=== PATIENT | female | born 1965 | race African-American/Black ===

== ENCOUNTER 2017-02-27 15:45 | Emergency (ER) | payer OTHER ==
[2017-02-27] MEDS ORDERED: NORMAL SALINE 1000 ML 1,000 ML IV ONE ×2 (16:51→18:59)
[2017-02-27] MEDS ORDERED: ONDANSETRON HCL INJ/PF 4 MG/2 ML SDV IV ONE (16:51)
--- NOTE | 2017-02-27 16:53 | ER Document Report ---
ED Medical Screen (RME) - General Chief Complaint: Nausea/Vomiting Stated Complaint: FLU LIKE SYMPTOMS Notes: 51-year-old female patient on chronic pain management with very large doses of oxycodone and OxyContin, reports five-day history of nausea vomiting, body aches and weakness. There is been no diarrhea. She has not had any medication at home to treat the nausea. There has been no fever, but her temperature was 99.3 at triage. I have greeted and performed a rapid initial assessment of this patient. A comprehensive ED assessment and evaluation of the patient, analysis of test results and completion of the medical decision making process will be conducted by additional ED providers. TRAVEL OUTSIDE OF THE [place] IN LAST 30 DAYS: No - Related Data Allergies/Adverse Reactions: amitriptyline [Amitriptyline] Allergy (Verified 02/27/17 15:51) celecoxib [From Celebrex] Allergy (Verified 02/27/17 15:51) cephalexin monohydrate [From Keflex] Allergy (Verified 02/27/17 15:51) Sulfa (Sulfonamide Antibiotics) Allergy (Verified 02/27/17 15:51) topiramate [From Topamax] Allergy (Verified 02/27/17 15:51) tramadol HCl [From Ultracet] Allergy (Verified 02/27/17 15:51) zolmitriptan [From Zomig] Allergy (Verified 02/27/17 15:51) acetaminophen [From MIDRIN] Adverse Reaction (Verified 02/27/17 15:51) caffeine [From Cafergot] Adverse Reaction (Verified 02/27/17 15:51) dichloralphenazone [From MIDRIN] Adverse Reaction (Verified 02/27/17 15:51) diclofenac sodium [From Arthrotec 75] Adverse Reaction (Verified 02/27/17 15:51) ergotamine tartrate [From Cafergot] Adverse Reaction (Verified 02/27/17 15:51) ibuprofen Adverse Reaction (Verified 02/27/17 15:51) isometheptene mucate [From MIDRIN] Adverse Reaction (Verified 02/27/17 15:51) misoprostol [From Arthrotec 75] Adverse Reaction (Verified 02/27/17 15:51) morphine [Morphine] Adverse Reaction (Verified 02/27/17 15:51) sertraline HCl [From Zoloft] Adverse Reaction (Verified 04/05/17 15:51) sumatriptan [From Imitrex] Adverse Reaction (Verified 02/27/17 15:51) sumatriptan succinate [From Imitrex] Adverse Reaction (Verified 02/27/17 15:51) Home Medications: Current Home Medications Carisoprodol [Carisoprodol] 350 mg PO TID 02/27/17 [History] Lisinopril [Lisinopril] 40 mg PO DAILY 02/27/17 [History] Naproxen [Naproxen] 500 mg PO BID 02/27/17 [History] Oxycodone HCl [Oxycodone HCl] 30 mg PO Q4H PRN 02/27/17 [History] Oxycodone HCl [Oxycontin] 60 mg PO Q12H PRN 02/27/17 [History] Propranolol HCl [Propranolol HCl ER] 120 mg PO DAILY 02/27/17 [History] Past Medical History - Past Medical History Cardiac Medical History: Reports: Hx Hypertension Neurological Medical History: Reports: Hx Migraine Renal/ Medical History: Denies: Hx Peritoneal Dialysis Past Surgical History: Reports: Hx Appendectomy - Immunizations Hx Diphtheria, Pertussis, Tetanus Vaccination: No Physical Exam - Vital signs Vitals: Temp Pulse Resp BP Pulse Ox 99.3 F 55 L 20 148/88 H 99 02/27/17 15:52 02/27/17 15:52 02/27/17 15:52 02/27/17 15:52 02/27/17 15:52 Course - Vital Signs Vital signs: Temp Pulse Resp BP Pulse Ox 99.3 F 55 L 20 148/88 H 99 02/27/17 15:52 02/27/17 15:52 02/27/17 15:52 02/27/17 15:52 02/27/17 15:52
[2017-02-27 18:06] LABS: ABSOLUTE MONOCYTES (AUTO) 0.3 10^3/uL (0.1-1.4); ABSOLUTE NEUT (AUTO) 2.1 10^3/uL (1.7-8.2); BASOPHILS % (AUTO) 0.8 % (0-2); EOSINOPHILS % (AUTO) 0.3 % (0-6); HEMATOCRIT 44.3 % (36.0-47.0); HGB HCT DIFFERENCE 0.7; LYMPHOCYTES % (AUTO) 45.1 % (13-45); MEAN CORPUSCULAR HEMOGLOBIN 30.6 pg (27.0-33.4); MEAN CORPUSCULAR HGB CONC 33.9 g/dL (32.0-36.0); MEAN CORPUSCULAR VOLUME 90 fl (80-97); MONOCYTES % (AUTO) 6.3 % (3-13); RED CELL DISTRIBUTION WIDTH 12.7 % (11.5-14.0); SEGMENTED NEUTROPHILS % (AUTO) 47.5 % (42-78); WHITE BLOOD COUNT 4.4 10^3/uL (4.0-10.5)
[2017-02-27 18:09] LABS: ALANINE AMINOTRANSFERASE 18 U/L (9-52); ALBUMIN 4.3 g/dL (3.5-5.0); ALKALINE PHOSPHATASE 122 U/L (38-126); ANION GAP 14 (5-19); ASPARTATE AMINO TRANSFERASE 17 U/L (14-36); BILIRUBIN,DIRECT 0.4 mg/dL (0.0-0.4); BILIRUBIN,TOTAL 1.1 mg/dL (0.2-1.3); BLOOD UREA NITROGEN 16 mg/dL (7-20); CALCIUM 9.6 mg/dL (8.4-10.2); CARBON DIOXIDE 25 mmol/L (22-30); CHLORIDE 96 mmol/L (98-107); CREATININE RESULT 0.63 mg/dL (0.52-1.25); GLUCOSE 90 mg/dL (75-110); LIPASE 140.5 U/L (23-300); POTASSIUM 3.5 mmol/L (3.6-5.0); SODIUM 134.9 mmol/L (137-145); TOTAL PROTEIN 6.9 g/dL (6.3-8.2)
--- NOTE | 2017-02-27 18:54 | ER Document Report ---
ED GI/ - General Chief Complaint: Nausea/Vomiting Stated Complaint: FLU LIKE SYMPTOMS Mode of Arrival: Ambulatory Information source: Patient TRAVEL OUTSIDE OF THE [place] IN LAST 30 DAYS: No - HPI Notes: 02/27/17 18:51 Patient arrives with complaints of nausea and vomiting with body aches for the last several days. Complains of some occasional abdominal cramping but no significant abdominal pain. She denies any chest pain or shortness breath. No fever. She has a history of chronic pain and is on OxyContin and oxycodone for this. She is concerned that she is dehydrated from her vomiting. She denies any diarrhea. She denies any blood in her vomit or stools. He has any problems taking or weakness. No blurred or loss vision. No rash. Nothing seems to make her symptoms better or worse. She is no other complaints at this time. - Related Data Allergies/Adverse Reactions: amitriptyline [Amitriptyline] Allergy (Verified 02/27/17 15:51) celecoxib [From Celebrex] Allergy (Verified 02/27/17 15:51) cephalexin monohydrate [From Keflex] Allergy (Verified 02/27/17 15:51) Sulfa (Sulfonamide Antibiotics) Allergy (Verified 02/27/17 15:51) topiramate [From Topamax] Allergy (Verified 02/27/17 15:51) tramadol HCl [From Ultracet] Allergy (Verified 02/27/17 15:51) zolmitriptan [From Zomig] Allergy (Verified 02/27/17 15:51) acetaminophen [From MIDRIN] Adverse Reaction (Verified 02/27/17 15:51) caffeine [From Cafergot] Adverse Reaction (Verified 02/27/17 15:51) dichloralphenazone [From MIDRIN] Adverse Reaction (Verified 02/27/17 15:51) diclofenac sodium [From Arthrotec 75] Adverse Reaction (Verified 02/27/17 15:51) ergotamine tartrate [From Cafergot] Adverse Reaction (Verified 02/27/17 15:51) ibuprofen Adverse Reaction (Verified 02/27/17 15:51) isometheptene mucate [From MIDRIN] Adverse Reaction (Verified 02/27/17 15:51) misoprostol [From Arthrotec 75] Adverse Reaction (Verified 02/27/17 15:51) morphine [Morphine] Adverse Reaction (Verified 02/27/17 15:51) sertraline HCl [From Zoloft] Adverse Reaction (Verified 02/27/17 15:51) sumatriptan [From Imitrex] Adverse Reaction (Verified 02/27/17 15:51) sumatriptan succinate [From Imitrex] Adverse Reaction (Verified 02/27/17 15:51) Home Medications: Current Home Medications Carisoprodol [Carisoprodol] 350 mg PO TID 02/27/17 [History] Lisinopril [Lisinopril] 40 mg PO DAILY 02/27/17 [History] Naproxen [Naproxen] 500 mg PO BID 02/27/17 [History] Oxycodone HCl [Oxycodone HCl] 30 mg PO Q4H PRN 02/27/17 [History] Oxycodone HCl [Oxycontin] 60 mg PO Q12H PRN 02/27/17 [History] Propranolol HCl [Propranolol HCl ER] 120 mg PO DAILY 02/27/17 [History] Past Medical History - Social History Smoking Status: Unknown if Ever Smoked Chew tobacco use (# tins/day): No Frequency of alcohol use: None Drug Abuse: None Family History: Reviewed & Not Pertinent Patient has suicidal ideation: No Patient has homicidal ideation: No - Past Medical History Cardiac Medical History: Reports: Hx Hypertension Neurological Medical History: Reports: Hx Migraine Renal/ Medical History: Denies: Hx Peritoneal Dialysis Past Surgical History: Reports: Hx Appendectomy, Hx Orthopedic Surgery - right shoulder - Immunizations Hx Diphtheria, Pertussis, Tetanus Vaccination: No Review of Systems - Review of Systems -: Yes All other systems reviewed and negative Physical Exam - Vital signs Vitals: Temp Pulse Resp BP Pulse Ox 99.3 F 55 L 20 148/88 H 99 02/27/17 15:52 02/27/17 15:52 02/27/17 15:52 02/27/17 15:52 02/27/17 15:52 - General General appearance: Appears well, Alert In distress: None - HEENT Head: Normocephalic, Atraumatic Eyes: Normal Pupils: PERRL Ears: Normal Mouth/Lips: Normal Mucous membranes: Normal Pharynx: Normal - Respiratory Respiratory status: No respiratory distress Breath sounds: Normal - Cardiovascular Rhythm: Regular Heart sounds: Normal auscultation Murmur: No - Abdominal Inspection: Normal Distension: No distension Bowel sounds: Normal Tenderness: Nontender Organomegaly: No organomegaly - Back Back: Normal, Nontender. No: CVA tenderness - Extremities General upper extremity: Normal inspection, Nontender, Normal color, Normal ROM , Normal temperature General lower extremity: Normal inspection, Nontender, Normal color, Normal ROM , Normal temperature, Normal weight bearing. No: Prince's sign - Neurological Neuro grossly intact: Yes Cognition: Normal Orientation: AAOx4 Nirav Coma Scale Eye Opening: Spontaneous [place] Coma Scale Verbal: Oriented [place] Coma Scale Motor: Obeys Commands Nirav Coma Scale Total: 15 Speech: Normal Motor strength normal: LUE, RUE, LLE, RLE Sensory: Normal - Psychological Associated symptoms: Normal affect, Normal mood - Skin Skin Temperature: Warm Skin Moisture: Dry Skin Color: Normal Course - Re-evaluation Re-evalutation: 02/27/17 19:40 Patient's nontoxic-appearing with stable vitals. Patient has a benign abdominal exam. Her labs are all unremarkable. She has no obvious signs of dehydration with a normal creatinine and BUN. EKG troponin chest x-ray are all negative. This point we are awaiting a urine sample to rule out UTI as a source of her nausea vomiting. If her urinalysis is negative the patient will be discharged home with antiemetics. If it shows urinary tract infection she will be discharged home with antiemetics and antibiotics. The patient is noted to have elevated blood pressure during today's emergency department visit. The patient was informed of this finding. The patient was instructed that this may be related to pre-hypertension and requires further evaluation with a primary care provider. The patient has no hypertensive symptoms at this time. The patient's emergency department workup and current diagnosis were explained to the patient and or family. Follow-up instructions were provided. Medications if prescribed were discussed. Instructions for when to return to the emergency department including specific worrisome symptoms were discussed with the patient and/or family. - Vital Signs Vital signs: Temp Pulse Resp BP Pulse Ox 99.3 F 55 L 20 148/88 H 99 02/27/17 15:52 02/27/17 15:52 02/27/17 15:52 02/27/17 15:52 02/27/17 15:52 - Laboratory Result Diagrams: 02/27/17 17:31 02/27/17 17:31 Laboratory results interpreted by me: 02/27/17 02/27/17 17:31 17:31 Lymphocytes % 45.1 H Sodium 134.9 L Potassium 3.5 L Chloride 96 L - Diagnostic Test Radiology reviewed: Image reviewed, Reports reviewed - Chest x-ray negative - EKG Interpretation by Me EKG shows normal: Sinus rhythm, Intervals, QRS Complexes, ST-T Waves Rate: Bradycardia When compared to previous EKG there are: No significant change Discharge - Discharge Clinical Impression: Nausea & vomiting Qualifiers: Vomiting type: unspecified Vomiting Intractability: non-intractable Qualified Code(s): R11.2 - Nausea with vomiting, unspecified Disposition: HOME, SELF-CARE Instructions: Vomiting ([facility]) Additional Instructions: Take medications as prescribed. Drink plenty of fluids. Follow-up with your doctor if not better in 3 days, sooner for persistent vomiting, high fever, severe abdominal pain, passing out, or any further concerns. Your blood pressure was elevated during today's visit. Have this rechecked with your doctor. Prescriptions: Ondansetron HCl [Zofran 4 mg Tablet] 1 tab PO Q6H PRN #10 tablet PRN Reason: Forms: Elevated Blood Pressure
[2017-02-27 19:54] LABS: APPEARANCE,URINE CLEAR; BILIRUBIN,URINE NEGATIVE (NEGATIVE); GLUCOSE, URINE NEGATIVE (NEGATIVE); KETONES,URINE 20 mg/dL (NEGATIVE); LEUKOCYTE ESTERASE,URINE NEGATIVE (NEGATIVE); NITRITE,URINE NEGATIVE (NEGATIVE); PROTEIN,URINE NEGATIVE (NEGATIVE); URINE SPECIFIC GRAVITY 1.021
[2017-02-27 21:58] VITALS: BP 110/68
--- NOTE | 2017-02-27 22:08 | EKG REPORT ---
SEVERITY:- ABNORMAL ECG - SINUS BRADYCARDIA CONSIDER LEFT VENTRICULAR HYPERTROPHY : Confirmed by: Poonam Cruz MD 27-Feb-2017 22:06:45
== END 2017-02-27 21:58 | disposition home or self-care (01) ==
LOC: ER 15:45
DX: R11.2 Nausea with vomiting, unspecified (principal); M79.1 Myalgia; R53.1 Weakness; R19.7 Diarrhea, unspecified; I10 Essential (primary) hypertension; Z88.2 Allergy status to sulfonamides; Z88.6 Allergy status to analgesic agent
CPT/HCPCS: 93005; 99284; 96361; 96374; 36415; 87040; 83690; 85025; 80053; 81001; 84484; 71020; 93010; J2405; J7030

== ENCOUNTER 2017-06-28 15:13 | Emergency (ER) | payer OTHER ==
[2017-06-28] MEDS ORDERED: ACETAMINOPHEN 325 MG TABLET PO ONE (15:46)
--- NOTE | 2017-06-28 16:25 | ER Document Report ---
ED Fall - General Chief Complaint: Fall Stated Complaint: FALL/RIGHT LEG INJURY Time Seen by Provider: 06/28/17 15:33 Mode of Arrival: Wheelchair Information source: Patient Notes: 52 yo female presents to ed for pain to right hip, femur, knee, and lower leg, after falling about 2 weeks ago. Paitent states the pain is not getting better. TRAVEL OUTSIDE OF THE [place] IN LAST 30 DAYS: No - HPI Occurred: Other - 2 weeks Where: Home, Outdoors Context: Tripped, Fell from standing Associated symptoms: None Location of injury/pain: Hip, Knee, Thigh, Lower extremity Quality of pain: Achy, Sharp Severity: Moderate Pain Level: 4 - Related data Allergies/Adverse Reactions: amitriptyline [Amitriptyline] Allergy (Verified 06/28/17 15:22) celecoxib [From Celebrex] Allergy (Verified 06/28/17 15:22) cephalexin monohydrate [From Keflex] Allergy (Verified 06/28/17 15:22) Sulfa (Sulfonamide Antibiotics) Allergy (Verified 06/28/17 15:22) topiramate [From Topamax] Allergy (Verified 06/28/17 15:22) tramadol HCl [From Ultracet] Allergy (Verified 06/28/17 15:22) zolmitriptan [From Zomig] Allergy (Verified 06/28/17 15:22) acetaminophen [From MIDRIN] Adverse Reaction (Verified 06/28/17 15:22) caffeine [From Cafergot] Adverse Reaction (Verified 06/28/17 15:22) dichloralphenazone [From MIDRIN] Adverse Reaction (Verified 06/28/17 15:22) diclofenac sodium [From Arthrotec 75] Adverse Reaction (Verified 06/28/17 15:22) ergotamine tartrate [From Cafergot] Adverse Reaction (Verified 06/28/17 15:22) ibuprofen Adverse Reaction (Verified 06/28/17 15:22) isometheptene mucate [From MIDRIN] Adverse Reaction (Verified 06/28/17 15:22) misoprostol [From Arthrotec 75] Adverse Reaction (Verified 06/28/17 15:22) morphine [Morphine] Adverse Reaction (Verified 06/28/17 15:22) sertraline HCl [From Zoloft] Adverse Reaction (Verified 06/28/17 15:22) sumatriptan [From Imitrex] Adverse Reaction (Verified 06/28/17 15:22) sumatriptan succinate [From Imitrex] Adverse Reaction (Verified 06/28/17 15:22) Past Medical History - General Information source: Patient - Social History Smoking Status: Current Every Day Smoker Cigarette use (# per day): Yes Smoking Education Provided: Yes Frequency of alcohol use: None Drug Abuse: None Lives with: Family Family History: Reviewed & Not Pertinent Patient has suicidal ideation: No Patient has homicidal ideation: No - Past Medical History Cardiac Medical History: Reports: Hx Hypertension Pulmonary Medical History: Reports: None EENT Medical History: Reports: None Neurological Medical History: Reports: Hx Migraine Endocrine Medical History: Reports: None Renal/ Medical History: Reports: None Malignancy Medical History: Reports: None GI Medical History: Reports: Hx Colonoscopy Musculoskeltal Medical History: Reports Hx Arthritis, Reports Hx Musculoskeletal Deformity - ddd, Reports Hx Musculoskeletal Trauma Skin Medical History: Reports None Psychiatric Medical History: Reports: Hx Anxiety Traumatic Medical History: Reports: None Infectious Medical History: Reports: None Past Surgical History: Reports: Hx Appendectomy, Hx Orthopedic Surgery - right shoulder - Immunizations Hx Diphtheria, Pertussis, Tetanus Vaccination: No Review of Systems - Review of Systems Constitutional: No symptoms reported EENT: No symptoms reported Cardiovascular: No symptoms reported Respiratory: No symptoms reported Gastrointestinal: No symptoms reported Genitourinary: No symptoms reported Female Genitourinary: No symptoms reported Musculoskeletal: Other - right leg form hip to ankle painful and bruised since fall 2 weeks ago. Skin: No symptoms reported Hematologic/Lymphatic: No symptoms reported Neurological/Psychological: No symptoms reported -: Yes All other systems reviewed and negative Physical Exam - Vital signs Vitals: Temp Pulse Resp BP Pulse Ox 98.5 F 67 18 114/80 97 06/28/17 15:19 06/28/17 15:19 06/28/17 15:19 06/28/17 15:19 06/28/17 15:19 Interpretation: Normal - General General appearance: Appears well, Alert - HEENT Head: Normocephalic, Atraumatic Eyes: Normal Pupils: PERRL - Respiratory Respiratory status: No respiratory distress Chest status: Nontender Breath sounds: Normal Chest palpation: Normal - Cardiovascular Rhythm: Regular Heart sounds: Normal auscultation Murmur: No - Abdominal Inspection: Normal Distension: No distension Bowel sounds: Normal Tenderness: Nontender Organomegaly: No organomegaly - Back Back: Normal, Nontender - Extremities General upper extremity: Normal inspection, Nontender, Normal color, Normal ROM , Normal temperature General lower extremity: Normal temperature Hip: Tender, Ecchymosis Thigh: Tender, Ecchymosis Knee: Tender, Ecchymosis Calf: Tender, Ecchymosis Ankle: Tender, Ecchymosis Foot: Normal, Nontender - Neurological Neuro grossly intact: Yes Cognition: Normal Orientation: AAOx4 [place] Coma Scale Eye Opening: Spontaneous Nirav Coma Scale Verbal: Oriented [place] Coma Scale Motor: Obeys Commands [place] Coma Scale Total: 15 Speech: Normal Motor strength normal: LUE, RUE, LLE, RLE Sensory: Normal - Psychological Associated symptoms: Normal affect, Normal mood - Skin Skin Temperature: Warm Skin Moisture: Dry Skin Color: Normal Course - Re-evaluation Re-evalutation: 06/28/17 18:30 Discussed xrays with patient and written reports given to patient. Patient instructed to follow up with primary md. - Vital Signs Vital signs: Temp Pulse Resp BP Pulse Ox 98.4 F 57 L 18 110/51 L 98 06/28/17 18:17 06/28/17 18:17 06/28/17 15:19 06/28/17 18:17 06/28/17 18:17 - Diagnostic Test Radiology reviewed: Image reviewed, Reports reviewed Discharge - Discharge Clinical Impression: Contusion of right lower extremity Qualifiers: Encounter type: initial encounter Qualified Code(s): S80.11XA - Contusion of right lower leg, initial encounter Condition: Stable Disposition: HOME, SELF-CARE Additional Instructions: CONTUSION: Your injury has resulted in a contusion -- a crushing of the deep tissues. No injury to important structures was detected during the physician's exam. Contusions vary in the amount of pain they cause, and in the length of time required for healing. Typically, the area will become bruised, and will remain painful to touch for two or three weeks. However, most patients are back to working and playing within a few days. After the initial period of rest and cold-packs, your symptoms (together with the doctor's recommendations) will determine how rapidly you can get back to full activity. Usually this means "do what feels okay, but don't do things that hurt." If re-examination was recommended, it's important to follow up as instructed. Call the doctor or return any time if pain increases, if swelling becomes severe, if you develop numbness or weakness in an injured extremity, or if any other alarming symptoms occur. USE OF TYLENOL (ACETAMINOPHEN): Acetaminophen may be taken for pain relief or fever control. It's much safer than aspirin, offering a wider range of "safe" dosages. It is safe during . Some brand names are Tylenol, Panadol, Datril, Anacin 3, Tempra, and Liquiprin. Acetaminophen can be repeated every four hours. The following are maximum recommended dosages: WEIGHT Dose Drops Elixir Chewable( 80mg) (LBS.) drprs=droppers tsp=teaspoon 6 40 mg 0.4 ml (1/2) 6-11 80 mg 0.8 ml (full) tsp 1 tab 12-16 120 mg 1 1/2 drprs 3/4 tsp 1 1/2 tabs 17-23 160 mg 2 drprs 1 tsp 2 tabs 24-30 240 mg 3 drprs 1 1/2 tsp 3 tabs 30-35 320 mg 2 tsp 4 tabs 36-41 360 mg 2 1/4 tsp 4 1/2 tabs 42-47 400 mg 2 1/2 tsp 5 tabs 48-53 480 mg 3 tsp 6 tabs 54-59 520 mg 3 1/4 tsp 6 1/2 tabs 60-64 560 mg 3 1/2 tsp 7 tabs 65-70 600 mg 3 3/4 tsp 7 1/2 tabs 71-76 640 mg 4 tsp 8 tabs 77-82 720 mg 4 1/2 tsp 9 tabs 83-88 800 mg 5 tsp 10 tabs >89 pounds or adults 650 mg to 900 mg Acetaminophen can be repeated every four hours. Maximum dose not to exceed 4000 mg a day. These maximum recommended dosages are slightly higher than the dosages written on the product container, but these dosages are very safe and below the toxic dosage for acetaminophen. ICE PACKS: Apply ice packs frequently against the painful area. Many different schedules are recommended, such as "20 minutes on, 20 minutes off" or "one hour ice, two hours rest." If you need to work, you may need to go longer between ice treatments. You should plan to have the area ice packed AT LEAST one fourth of the time. The ice should be applied over the wrap, tape, or splint, or over a layer of cloth -- not directly against the skin. Some ice bags have a built-in cloth and can be put directly on the skin. WARM PACKS: After approximately two days, apply gentle heat (such as a heating pad or hot water bottle) for about 20 to 30 minutes about every two hours -- at least four times daily. Warmth and elevation will help you make a more rapid recovery , and will ease the pain considerably. Do not use HOT heat, and never apply heat for longer than 30 minutes. The continuous heat can invisibly damage skin and muscles -- even when no burn is seen on the surface. Damaged muscles can make you MORE sore. FOLLOW-UP CARE: If you have been referred to a physician for follow-up care, call the physician s office for an appointment as you were instructed or within the next two days. If you experience worsening or a significant change in your symptoms, notify the physician immediately or return to the Emergency Department at any time for re-evaluation. Forms: Smoking Cessation Education Referrals: GAL ANDREWS DO [Primary Care Provider] - Follow up in 3-5 days
--- NOTE | 2017-06-28 16:44 | RADIOLOGY REPORT (SQ) ---
EXAM DESCRIPTION: FEMUR RIGHT COMPLETED DATE/TIME: 06/28/2017 4:13 pm REASON FOR STUDY: fall with continued pain COMPARISON: None. NUMBER OF VIEWS: Two views. TECHNIQUE: Two radiographic images acquired of the right femur to include hip and knee in at least o ne projection. LIMITATIONS: None. FINDINGS: MINERALIZATION: Normal. BONES: No acute fracture. No worrisome bone lesions. SOFT TISSUES: No obvious swelling or foreign body. OTHER: No other significant finding. IMPRESSION: NEGATIVE STUDY OF THE RIGHT FEMUR. NO RADIOGRAPHIC EVIDENCE OF ACUTE INJURY. TECHNICAL DOCUMENTATION: JOB ID: [id number] [employer]- All Rights Reserved
--- NOTE | 2017-06-28 16:45 | RADIOLOGY REPORT (SQ) ---
EXAM DESCRIPTION: HIP RIGHT AP/LATERAL COMPLETED DATE/TIME: 06/28/2017 4:13 pm REASON FOR STUDY: fall with continued pain COMPARISON: None. NUMBER OF VIEWS: Two views. TECHNIQUE: AP pelvis and additional frog-leg view of the right hip. LIMITATIONS: None. FINDINGS: MINERALIZATION: Normal. RIGHT HIP: No fracture or dislocation. No worrisome bone lesions. LEFT HIP: No fracture or dislocation. No worrisome bone lesions. PUBIS AND ISCHIUM: No fracture. PELVIS: No fracture. SACRUM: No fracture or dislocation. No worrisome bone lesions. LOWER LUMBAR SPINE: No fracture or dislocation. No worrisome bone lesions. No significant disc disea se. SOFT TISSUES: No findings. OTHER: No other significant finding. IMPRESSION: NEGATIVE STUDY OF THE RIGHT HIP. NO RADIOGRAPHIC EVIDENCE OF ACUTE INJURY. TECHNICAL DOCUMENTATION: JOB ID: [id number] [employer]- All Rights Reserved
--- NOTE | 2017-06-28 16:45 | RADIOLOGY REPORT (SQ) ---
EXAM DESCRIPTION: ANKLE RIGHT COMPLETE COMPLETED DATE/TIME: 06/28/2017 4:13 pm REASON FOR STUDY: fall with continued pain COMPARISON: Right tib fib two views, right knee four views, right femur two views, right hip two vie ws same date NUMBER OF VIEWS: Three views. TECHNIQUE: AP, lateral, and oblique radiographic images acquired of the right ankle. LIMITATIONS: None. FINDINGS: MINERALIZATION: Normal. BONES: No acute fracture at the right ankle. There is minimal bony irregularity with old corticated avulsion fragment off the medial malleolar tip without overlying soft tissue swelling. Old correctiv e osteotomy, proximal 1st metatarsal with screws, at the bottom edge of the field of view. JOINTS: No effusions. SOFT TISSUES: No soft tissue swelling. No foreign body. OTHER: No other significant finding. IMPRESSION: No acute fracture. Old well corticated avulsion fragment off the medial malleolus. Old postsurgical changes 1st metatar rk. TECHNICAL DOCUMENTATION: JOB ID: [id number] [employer]- All Rights Reserved
--- NOTE | 2017-06-28 16:46 | RADIOLOGY REPORT (SQ) ---
EXAM DESCRIPTION: KNEE RIGHT 4 VIEWS COMPLETED DATE/TIME: 06/28/2017 4:13 pm REASON FOR STUDY: fall with continued pain COMPARISON: None. NUMBER OF VIEWS: Four views. TECHNIQUE: AP, lateral, and both oblique radiographic images acquired of the right knee. LIMITATIONS: None. FINDINGS: MINERALIZATION: Normal. BONES: No acute fracture or dislocation. No worrisome bone lesions. JOINT: There is mild narrowing of the patellofemoral joint compartment. There is no joint effusion. SOFT TISSUES: No soft tissue swelling. No radio-opaque foreign body. OTHER: No other significant finding. IMPRESSION: Mild patellofemoral degenerative joint changes with no acute abnormality. TECHNICAL DOCUMENTATION: JOB ID: [id number] [employer]- All Rights Reserved
--- NOTE | 2017-06-28 16:47 | RADIOLOGY REPORT (SQ) ---
EXAM DESCRIPTION: TIBIA FIBULA RIGHT COMPLETED DATE/TIME: 06/28/2017 4:13 pm REASON FOR STUDY: fall with continued pain COMPARISON: None. NUMBER OF VIEWS: Two views. TECHNIQUE: Two radiographic images acquired of the right tibia and fibula to include the knee and an kle in at least one projection. LIMITATIONS: None. FINDINGS: MINERALIZATION: Normal. BONES: No acute fracture or dislocation. No worrisome bone lesions. SOFT TISSUES: No obvious swelling or foreign body. OTHER: No other significant finding. IMPRESSION: NEGATIVE STUDY OF THE RIGHT TIBIA AND FIBULA. NO RADIOGRAPHIC EVIDENCE OF ACUTE INJURY. TECHNICAL DOCUMENTATION: JOB ID: [id number] [employer]- All Rights Reserved
[2017-06-28 18:22] VITALS: BP 110/51
== END 2017-06-28 18:23 | disposition home or self-care (01) ==
LOC: ER 15:13
DX: S80.11XA Contusion of right lower leg, initial encounter (principal); S70.01XA Contusion of right hip, initial encounter; S70.11XA Contusion of right thigh, initial encounter; S80.01XA Contusion of right knee, initial encounter; S90.01XA Contusion of right ankle, initial encounter; W19.XXXA Unspecified fall, initial encounter; Y92.008 Other place in unspecified non-institutional (private) residence as the place of occurrence of the external cause; M25.551 Pain in right hip; M25.562 Pain in left knee; M79.661 Pain in right lower leg; M89.8X5 Other specified disorders of bone, thigh; I10 Essential (primary) hypertension; F17.210 Nicotine dependence, cigarettes, uncomplicated; Z71.6 Tobacco abuse counseling; Z88.8 Allergy status to other drugs, medicaments and biological substances; Z88.2 Allergy status to sulfonamides; Z88.5 Allergy status to narcotic agent; Z88.6 Allergy status to analgesic agent
CPT/HCPCS: 99283